=== PATIENT | female | born 2005 | race Two or more races ===

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

== ENCOUNTER 2024-11-25 20:54 | Emergency (ER) | payer MEDICAID ==
[~2024-11-25] VITALS: Ht 165.1 cm; Wt 86.0 kg
--- NOTE | 2024-11-25 21:48 | ED.PDOC ---
GI ASSESSMENT HPI Comments 19 year old female presents to the ED with a chief complaint of nausea/vomiting onset 2 days. Patient states she has been taking a generic brand of Ozempic, last use was 2 days ago, shortly after began experiencing nausea, vomiting and diffused abdominal pain. Patient has not been able to eat or drink, is concerned for dehydration. Denies any PMHx as well as chest pain, dizziness, shortness of breath, diarrhea, fever, chills, dysuria, hematuria, hematemesis. No other symptoms or modifiyng factors present at this time. Chief Complaint: Nausea/Vomiting Time Seen by MD: 21:30 Reviewed Notes: Medications, Allergies Allergies: Coded Allergies: NO KNOWN ALLERGIES (Unverified , 12/24/22) Home Meds No Active Prescriptions or Reported Meds Information Source: Patient Mode of Arrival: Ambulatory Timing: Days Duration: Since onset Prehospital treatment: None Quality: Cramping Severity: Moderate Recent: Other Recent Hx of: None Pain Location: Diffuse Modifying Factors: Nothing Associated sign and symptoms: Nausea, Vomiting, Abdominal Pain Past Medical History PAST MEDICAL HISTORY: Denies Surgical History: Denies all surgeries DIRECTOR STYLE History: No Pertinent DIRECTOR STYLE History Family History Family History: Reviewed,noncontributory to illness, No family hx of Cancer, No family hx of DM, No family hx of Heart tor, No family hx of HTN, No family hx ofKidney tor, No family hx of Liver tor, No family hx of Lung tor, No family hx of Stroke Social History Smoker: Non-Smoker Alcohol: Denies ETOH Use Drugs: Denies Drug Use Lives In: Home Constitutional: denies: chills, diaphoresis, fatigue, fever, malaise, sweats, weakness, others EENTM: denies: blurred vision, double vision, ear bleeding, ear discharge, ear drainage, ear pain, ear ringing, eye pain, eye redness, hearing loss, mouth pain, mouth swelling, nasal discharge, nose bleeding, nose congestion, nose pain, photophobia, tearing, throat pain, throat swelling, voice changes, others Respiratory: denies: cough, hemoptysis, orthopnea, SOB at rest, shortness of breath, SOB with excertion, stridor, wheezing, others Cardiovascular: denies: chest pain, dizzy spells, diaphoresis, Dyspnea on exertion, edema, irregular heart beat, left arm pain, lightheadedness, palpitations, PND, syncope, others Gastrointestinal: reports: abdominal pain, nausea, vomiting; denies: abdomen distended, blood streaked bowels, constipated, diarrhea, dysphagia, difficulty swallowing, hematemesis, melena, poor appetite, poor fluid intake, rectal bleeding, rectal pain, others Genitourinary: denies: abnormal vagina bleeding, burning, dyspareunia, dysuria, flank pain, frequency, hematuria, incontinence, pain, , vagina discharge, urgency, others Neurological: denies: dizziness, fainting, headache, left sided numbness, left sided weakness, numbness, paresthesia, pre-existing deficit, right sided numbness, right sided weakness, seizure, speech problems, tingling, tremors, weakness, others Musculoskeletal: denies: back pain, gout, joint pain, joint swelling, muscle pain, muscle stiffness, neck pain, others Integumetry: denies: bruises, change in color, change in hair/nails, dryness, laceration, lesions, lumps, rash, wounds, others Allergic/Immunocompromised: denies: Difficulty Healing, Frequent Infections, Hives, Itching, others Hematologic/Lymphatic: denies: anemia, blood clots, easy bleeding, easy bruising, swollen glands, others Endocrine: denies: excessive hunger, excessive sweating, excessive thirst, excessive urination, flushing, intolerance to cold, intolerance to heat, unexplained weight gain, unexplained weight loss, others Psychiatric: denies: anxiety, bipolar disorder, depression, hopeless, panic disorder, schizophrenia, sleepless, suicidal, others All Other Systems: Reviewed and Negative Physical Exam General Appearance: Normal HEENT: Normal ENT Inspection, Pharynx Normal, TMs Normal Neck: Full Range of Motion, Non-Tender, Normal, Normal Inspection Respiratory: Chest Non-Tender, Lungs Clear, No Accessory Muscle Use, No Respiratory Distress, Normal Breath Sounds Cardiovascular: No Edema, No JVD, No Murmur, No Gallop, Normal Peripheral Pulses, Regular Rate/Rhythm Breast Exam: Deferred Gastrointestinal: No Organomegaly, Non Tender, No Pulsatile Mass, Normal Bowel Sounds, Soft Genitalia: Deferred Pelvic: Deferred Rectal: Deferred Extremities: No calf tenderness, Normal capillary refill, Normal inspection, Normal range of motion, Non-tender, No pedal edema Musculoskeletal : Apperance: Normal Neurologic: Alert, custodial aide II-XII nml as Tested, No Motor Deficits, Normal Affect, Normal Mood, No Sensory Deficits Cerebellar Function: Normal Reflexes: Normal Skin: Dry, Normal Color, Warm Lymphatic: No Adenopathy Was a procedure done? Was a procedure done?: No GI differential Dx Differential Diagnosis: AAA, Appendicitis, Cholecystitis, Constipation, Diverticular disease, Esophagitis, Gastritis/PUD, Gastroenteritis, GI hemorrhage, UTI, Dehydration, Kidney Stone, Other X-Ray, Labs, Meds, VS Vital Signs Date Time Temp Pulse Resp B/P (MAP) Pulse Ox O2 Delivery O2 Flow Rate FiO2 11/25/24 23:27 76 16 98 Room Air 11/25/24 23:05 99.0 76 16 106/68 (81) 98 99.0 11/25/24 20:57 98.5 84 20 117/90 98 98.5 Lab Test 11/25/24 23:07 11/25/24 21:37 Range/Units Urine Color Yellow Yellow Urine Clarity Clear Clear Urine pH 7.5 5.0-9.0 Urine Specific [place] 1.033 1.001-1.035 Urine Protein 1+ H Negative Urine Ketones 4+ H Negative Urine Blood Negative Negative /uL Urine Nitrite Negative Negative Urine Bilirubin Negative Negative Urine Urobilinogen 2 H Negative mg/dL Urine Leukocyte Esterase Negative Negative /uL Urine RBC 9 0 - 4 /hpf Urine Microscopic WBC 1 0-5 /HPF Urine Squamous Epithelial Cells Few <5 /hpf Urine Bacteria None seen None Seen /hpf Urine Mucus Few None Seen Urine Glucose Normal Normal mg/dL Urine Test Negative Negative White Blood Count 7.8 4.4-10.8 10^3/uL Red Blood Count 5.55 H 4.0-5.20 10^6/uL Hemoglobin 16.5 H 12.2-16.2 g/dL Hematocrit 46.9 H 36.0-46.0 % Mean Corpuscular Volume 84.5 80.0-100.0 fL Mean Corpuscular Hemoglobin 29.6 28.0-32.0 pg Mean Corpuscular Hemoglobin Concent 35.1 32.0-36.0 g/dL Red Cell Distribution Width 13.5 11.8-14.3 % Platelet Count 278 140-450 10^3/uL Mean Platelet Volume 8.7 6.9-10.8 fL Neutrophils (%) (Auto) 75.6 37.0-80.0 % Lymphocytes (%) (Auto) 15.4 10.0-50.0 % Monocytes (%) (Auto) 8.7 0.0-12.0 % Eosinophils (%) (Auto) 0.0 0.0-7.0 % Basophils (%) (Auto) 0.3 0.0-2.0 % Neutrophils # (Auto) 5.9 1.6-8.6 10 ^3/uL Lymphocytes # (Auto) 1.2 0.4-5.4 10 ^3/uL Monocytes # (Auto) 0.7 0-1.3 10 ^3/uL Eosinophils # (Auto) 0 0-0.8 10 ^3/uL Basophils # (Auto) 0 0-0.2 10 ^3/uL Nucleated Red Blood Cells 0.0 % Sodium Level 143 136-145 mmol/L Potassium Level 3.2 L 3.5-5.1 mmol/L Chloride Level 102 98-107 mmol/L Carbon Dioxide Level 23 20-31 mmol/L Anion Gap 18 H 5-15 Blood Urea Nitrogen 11 9-23 mg/dL Creatinine 1.06 H 0.550-1.02 mg/dL Glomerular Filtration Rate Calc 77 >90 mL/min BUN/Creatinine Ratio 10.4 10.0-20.0 Serum Glucose 92 74-106 mg/dL Calcium Level 10.7 H 8.7-10.4 mg/dL Magnesium Level 2.4 1.6-2.6 mg/dL Total Bilirubin 0.9 0.2-1.0 mg/dL Aspartate Amino Transferase (AST) 26 13-40 U/L Alanine Aminotransferase (ALT) 25 7-40 U/L Alkaline Phosphatase 122 H 46-116 U/L Total Protein 9.1 H 5.7-8.2 g/dL Albumin > 6.0 H 3.2-4.8 g/dL Current Medications Medications (Trade) Dose Ordered Sig/Nissa Route Start Time Stop Time Status Last Admin Metoclopramide HCl (Reglan Injection) 10 mg ONCE ONCE IV 11/25/24 21:30 11/25/24 21:31 DC 11/25/24 23:20 Sodium Chloride 1,000 ml @ 1,000 mls/hr Q1H ONCE IVB 11/25/24 21:30 11/25/24 22:29 DC 11/25/24 22:51 Ketorolac Tromethamine (Toradol Injection) 15 mg ONCE ONCE IV 11/25/24 21:30 11/25/24 21:31 DC 11/25/24 23:20 Time of 1ST Reevaluation: 22:00 Reevaluation 1ST: Unchanged Patient Education/Counseling: Diagnosis, Treatment, Prognosis Family Education/Counseling: No Family Present Additional Information The following tests were ordered, and results were reviewed by me: CBC, CMP, UA, MAGNESIUM, PREGUA I discussed treatment and results with medical personnel and: patient Comprehensive systems review obtained and negative except for what is stated in the HPI. SEPSIS Sepsis Screen Date sepsis recognized/suspect: Nov 25, 2024 Time Sepsis recognized/suspect: 2100 Recent Procedure: No On Antibiotic Therapy: No Respiratory Rate >20: No Heart Rate >90: No Temp<36 C (96.8 F) or >38.3 C: No SBP <90 or MAP <65 mmHG: No New Acute Mental Status Change: No Is the patient on CPAP, BIPAP,: No Vital Signs Date Time Temp Pulse Resp B/P (MAP) Pulse Ox O2 Delivery O2 Flow Rate FiO2 11/25/24 23:27 76 16 98 Room Air 11/25/24 23:05 99.0 76 16 106/68 (81) 98 99.0 11/25/24 20:57 98.5 84 20 117/90 98 98.5 Laboratory Tests Test 11/25/24 21:37 White Blood Count 7.8 10^3/uL (4.4-10.8) Medications Medications Dose Ordered Sig/Nissa Route Start Time Stop Time Status Last Admin Dose Admin Ketorolac Tromethamine 15 mg ONCE ONCE IV 11/25/24 21:30 11/25/24 21:31 DC 11/25/24 23:20 Metoclopramide HCl 10 mg ONCE ONCE IV 11/25/24 21:30 11/25/24 21:31 DC 11/25/24 23:20 Sodium Chloride 1,000 ml @ 1,000 mls/hr Q1H ONCE IVB 11/25/24 21:30 11/25/24 22:29 DC 11/25/24 22:51 Departure 1 Departure Time of Disposition: 23:00 Impression: Primary Impression: Nausea and vomiting Disposition: 07 LEFT AGAINST MEDICAL ADVICE Condition: Stable e-Prescriptions No Active Prescriptions or Reported Meds Discharged With: Self Critical Care Note Critical Care Time?: No Stability Stability form required: No I personally scribed for KIM ELIZABETH MD ([email or web address]) on 11/25/24 at 21:48. Electronically submitted by Beatrice Damico ([email or web address]). I personally scribed for KIM ELIZABETH MD ([email or web address]) on 11/25/24 at 21:48. Electronically submitted by Beatrice Damico ([email or web address]). KIM ELIZABETH MD Nov 25, 2024 21:48
[2024-11-25 22:00] LABS: Hematocrit 46.9 % (36.0-46.0); Hemoglobin 16.5 g/dL (12.2-16.2); Mean Corpuscular Hemoglobin 29.6 pg (28.0-32.0); Mean Corpuscular Volume 84.5 fL (80.0-100.0); Nucleated Red Blood Cells % 0.0 %
[2024-11-25 22:08] LABS: Alanine Aminotransferase 25 U/L (7-40); Anion Gap 18 (5-15); BUN/Creatinine Ratio 10.4 (10.0-20.0); Blood Urea Nitrogen 11 mg/dL (9-23); Carbon Dioxide 23 mmol/L (20-31); Chloride 102 mmol/L (98-107); Glucose 92 mg/dL (74-106); Magnesium 2.4 mg/dL (1.6-2.6); Sodium 143 mmol/L (136-145)
[2024-11-25 22:09] LABS: Bilirubin, Total 0.9 mg/dL (0.2-1.0)
[2024-11-25 22:11] LABS: Albumin > 6.0 g/dL (3.2-4.8); Alkaline Phosphatase 122 U/L (46-116); Calcium 10.7 mg/dL (8.7-10.4); Potassium 3.2 mmol/L (3.5-5.1); Total Protein 9.1 g/dL (5.7-8.2)
[2024-11-25] MEDS: SODIUM CHLORIDE 0.9% 1,000 ML IVB ONE (22:51)
[2024-11-25 23:05] VITALS: BP 106/68; TEMP 99
[2024-11-25] MEDS: METOCLOPRAMIDE HCL 5MG/ml INJ 2ml VIAL IV ONE (23:20)
[2024-11-25] MEDS: KETOROLAC TROMETH 30 MG/ML 1ML VIAL IV ONE (23:20)
[2024-11-25 23:27] VITALS: PULSE 76; RESP 16; O2SAT 98
[2024-11-25 23:53] LABS: Urine Protein, UAD 1+ (Negative)
== END 2024-11-25 23:46 | disposition left against medical advice (07) ==
LOC: ER 20:54
DX: R11.2 Nausea with vomiting, unspecified (principal); Z79.899 Other long term (current) drug therapy
CPT/HCPCS: 36415; 80053; 81001; 81025; 83735; 85025; 96361; 96374; 96375; 99284; J1885; J2765; J7030